=== PATIENT | male | born 1990 | race Caucasian/White ===

== ENCOUNTER 2025-06-26 12:51 | Emergency (ER) | payer MEDICARE, SELFPAY ==
[2025-06-26 12:52] VITALS: BP 167/89
[2025-06-26 14:36] VITALS: BP 136/91
[2025-06-26] MEDS: MOTRIN 600 MG PO (15:05)
[2025-06-26] MEDS: ADACEL 0.5 ML IM (15:06)
--- NOTE | 2025-06-28 00:47 | ED.GENMED ---
History of Present Illness
General
Chief Complaint: Skin Surface Trauma
Source: patient
Exam Limitations: none
Time Seen by Provider: 06/26/25 13:43
Nursing documentation reviewed up to this point in time: agreed with
History of Present Illness
History of Present Illness:
see MDM
Review of Systems
Review of Systems
Allergies reviewed?: Yes
All Other Systems: Not applicable
Phy Exam
Physical Exam
Physical Exam:
GENERAL: Alert , in no apparent distress, comfortable at rest
HEAD: NCAT
CV: cap refill intact L middle finger
NEUROLOGICAL: Alert and oriented, no focal neuro deficits, , 5/5 strength, sensation intact,
SKIN: Warm and dry, linear laceration 2.5 cm to L middle finger volar aspect DIP joint
MUSCULOSKELETAL: L middle finger laceration horizontally oriented L DIP volar surface
no obvious tendon injury
able to flex 20 degrees
moderate pain/tenderness;
cap refill intact
sensation grossly intact
PSYCH: Normal and appropriate interaction.
Course
Orders/Labs/Results
Orders:
Orders
06/26/25 13:07
CR Finger(s)/thumb Min 2 Vw Lt Urgent
Comment:
Reason For Exam: lacteration to left 3rd finger
06/26/25 14:57
Ibuprofen [Motrin] 600 mg PO NOW STA
Tetanus/Diphth/Acelpertussis [Adacel] 0.5 ml IM .ONCE ONE
Vital Signs
Initial and Last Documented VS:
Initial Vital Signs
Temp Pulse Resp BP Pulse Ox
36.6 C 95 16 167/89 98
06/26/25 12:52 06/26/25 12:52 06/26/25 12:52 06/26/25 12:52 06/26/25 12:52
Last Documented Vital Signs
Temp Pulse Resp BP Pulse Ox
36.6 C 95 16 136/91 98
06/26/25 12:52 06/26/25 12:52 06/26/25 12:52 06/26/25 14:36 06/28/25 00:48
Procedures
Laceration Closure
Left Middle Distal Volar Third Finger(s):
Status of Wound: clean
Size of Wound in cm: 2.5
Description of Wound Edges: sharp and flap-well vascularized
Preparation: cleaned with saline
Anesthesia: 1% Lidocaine and Digital-Regional
Revision/Debridement: minor revision
Wound exploration: explored to base- no FB and no tendon involvement
Type of Closure: single layer closure
Skin Closure Material: 5-0 nylon
Number of sutures: 5
MDM/Problems Addressed
Differential Diagnosis Includes:
SEE MDM
MDM/Problems Addressed:
Note:
CHIEF COMPLAINT(S)
Laceration to the hand after attempting to catch a falling window.
HISTORY OF PRESENT ILLNESS
The patient is a 35-year-old male who presents with a laceration to the right hand. The injury occurred earlier today at approximately 12:20 PM while the patient was at work. He explained that he was on a job moving a window, and as the window began
to fall, he instinctively reached to catch it. The window broke during the fall, and glass sliced his hand, resulting in immediate bleeding described as squirting across the grass. While in the emergency department, the patient expressed discomfort
and concern about the injury, indicating that he felt faint upon arrival. Initial evaluation by X-ray did not reveal any residual glass, and the attending physician did not observe any tendon injury. Despite tingling along the side of the hand, he
retained the ability to flex the affected finger. No numbness or significant nerve damage was noted.
PAST MEDICAL AND SURGICAL HISTORY
The patient reported having undergone major surgery but did not specify the details. He believes he received a tetanus booster in 2020.
ALLERGIES
The patient denies any known allergies.
REVIEW OF SYSTEMS
- Integumentary: Laceration on the hand.
- Neurological: Experiencing tingling in the affected area but able to flex the finger.
- Musculoskeletal: Retained ability to flex the affected finger.
PHYSICAL EXAM
- Nursing notes reviewed and vital signs reviewed.
- Musculoskeletal: Examination of the hand revealed a laceration on the middle finger with no visible tendon injury. Tingling noted but the patient has full flexion capacity. No signs of glass fragment retention.
see above
PLAN
1. Administer local anesthesia for pain management.
2. Sutures were placed to close the laceration, and the patient was advised regarding care for stitches.
3. The patient was instructed to keep the dressing on and not to bend the finger intensely for a few days.
4. Suggest follow-up with a hand specialist if tingling persists beyond a few days.
5. Provide tetanus booster, considering the patients report of their last booster being in 2020.
6. Advise the patient on wound care, including cleaning and applying antibiotic ointment starting the following day.
7. Arrange for suture removal in 7-10 days at a follow-up visit with a primary care provider or urgent care.
DIFFERENTIAL DIAGNOSIS
The Differential Diagnosis includes, in no particular order and is not limited to:
1. Simple Laceration
2. Tendon laceration
3. Nerve injury
4. Foreign body in wound
5. Contusion
6. Abrasion
7. Avulsion
8. Hematoma
9. Fracture
10. Infection risk
35 y/o M
R hand dominant
L middle finger laceration from glass pane that broke
no obvious glass in wound
xray indep reviewed, no glass, no bony injury
irrigated, anesthetized, repaired with sutures
no obvious tendon injury
bulky dressing
wound care instructions
tetanus
*Pulse Oximetry
SaO2: 98
Oxygen Mode of Delivery: Room air
Patient hypoxic: no (98)
*Critical Care Note
Total Time (30-74mins, 75-104mins- exclusive of procedures): Not Applicable
ED Attending Note
-
Portions of this chart may have been created with voice recognition software.� Occasional wrong word or��sound alike� substitutions may have occurred due to the inherent limitations of voice recognition software.
Discharge Plan
Departure
Patient Disposition: Home (Routine Discharge)
Date of Disposition: 06/26/25
Time of Disposition: 14:57
Patient with high blood pressure during this ER visit?: No
Condition: Fair
Covid-19: Not Applicable
Discharge Problem:
Laceration of finger
Instructions: Laceration Repair With Stitches (DC)
Referrals:
NONE,* [Family Provider, Internal Medicine]
Bennie Solorio MD [Active, Orthopedics] - Follow up in 5-7 days
Activity Restrictions/Additional Instructions:
there was no sign of glass in your wound
you did not appear to have tendon injury
IF YOU HAVE CONTINUED NUMBNESS/TINGLING OR ANY RANGE OF MOTRIN PROBLEMS FOLLOW UP WITH HAND DOCTOR
KEEP THE WOUND CLEAN AND DRY FOR 24 HOURS
AFTER THAT YOU CAN GET IT WET IN THE BATH/SHOWER ONCE A DAY AND MAKE SURE IT IS CLEAN AND THERE IS NO DRIED BLOOD ON THE STITCHES
APPLY NEOSPORIN AND A BANDAID
THE STITCHES NEED TO BE REMOVED IN ABOUT 7-10 DAYS, SEE YOUR DOCTOR FOR THIS.
THE LAST DAY BEFORE STITCHES OUT, NO OINTMENT, LEAVE OPEN TO AIR
WATCH FOR SIGNS OF INFECTION AND RETURN NEEDED FOR PAIN, SWELLING, REDNESS, DRAINAGE, BLEEDING.
MOTRIN NEEDED FOR PAIN.
Interventions
Interventions:
*Risk Screen - Suicide Last Done: 06/26/25 13:03
*General Assessment Last Done: 06/26/25 13:03
*Neglect/Abuse Screening Last Done: 06/26/25 13:03
*ED- Fall Risk Assessment Last Done: 06/26/25 13:03
*Nursing Disposition Last Done: 06/26/25 15:16
ED-Skin Assessment Last Done: 06/26/25 13:03
Discharge Date and Time
Discharge Date/Time: 06/26/25 15:17
Print Language: YI
== END 2025-06-26 15:17 | disposition home or self-care (01) ==
LOC: EMR 12:51
PROVIDERS: EMERGENCY PHYSICIAN Emergency Medicine
DX: S61.213A Laceration without foreign body of left middle finger without damage to nail, initial encounter (principal); Z23 Encounter for immunization; W25.XXXA Contact with sharp glass, initial encounter; Y99.0 Civilian activity done for income or pay
CPT/HCPCS: 99283; 12001; 90471; 73140; 90715